=== PATIENT | female | born 1980 | race Caucasian/White ===

== ENCOUNTER 2016-12-02 08:05 | Outpatient (RCR) | payer BC ==
[~2016-12-02 08:05] MED LIST: CALC-250 PO; CLON1TAB27 PO; DESV100T PO; HYDR-3583 PO; LEVO88TA26 PO; LINA5TAB PO; LVT.112T PO; MAGN400T6 PO; METF500T8 PO; TIZA2TAB3 PO
== END 2017-03-02 | disposition home or self-care (01) ==
LOC: CARD 08:05
PROVIDERS: ATTEND Internal Medicine
DX: R00.2 Palpitations (principal)
CPT/HCPCS: 93225; 93226

== ENCOUNTER → 2016-12-29 | Outpatient (CLI) | payer BC ==
[~2016-12-29] VITALS: Ht 167.6 cm; Wt 105.7 kg
[~2016-12-29] MED LIST changes: +CATHETER FLUSH 10 ML SYR IV PRN
[2016-12-29 08:06] VITALS: BP 154/100
--- NOTE | 2016-12-29 16:07 | STRESS TEST ---
PROCEDURE PHYSICIAN: ZAKI BOYER DATE OF PROCEDURE: 12/29/2016 MYOCARDIAL PERFUSION IMAGING: ATTENDING PHYSICIAN: Hillary Bocanegra APRN PRIMARY PHYSICIAN: Dr. Patric Bocanegra. DIAGNOSES: 1. Chest pain. 2. Palpitation. PROCEDURE DETAILS: Please review Dr. Bocanegra's note for the treadmill test. Myocardial perfusion imaging was performed with 10.29 mCi of Myoview for rest imaging and 30 mCi of Myoview for stress imaging. TID was 0.96. Ejection fraction 77%. Normal myocardial perfusion imaging rest and stress imaging. Rest and stress previous normal wall motion on gaited images. CONCLUSION: 1. Normal myocardial perfusion imaging on stress and rest. 2. Normal LV function. Job ID: [id number] Dictated Date: 12/29/2016 12:40:21 Pyridine Operator Date: 12/29/2016 16:01:42 / jocelyn
== END ==
LOC: CARD 06:58
PROVIDERS: ATTEND Nurse Practitioner Family
DX: R07.9 Chest pain, unspecified (principal); R00.2 Palpitations
CPT/HCPCS: 78452; 93017

== ENCOUNTER → 2017-03-16 | Outpatient (CLI) | payer BC ==
[~2017-03-16] MED LIST changes: -CATHETER FLUSH 10 ML SYR IV PRN
--- NOTE | 2017-03-16 17:21 | Diagnostic Imaging Report ---
INDICATION: Low back pain. No known injury. EXAMINATION: Three views of the lumbar spine were obtained. FINDINGS: There is normal height and alignment of the lumbar vertebral bodies. Disc spaces are well-maintained. There is no spondylosis. There is no fracture. IMPRESSION: No abnormality is seen with no change from 01/03/2008. Dictated by: Dictated on workstation # [id number]
== END ==
LOC: RAD 16:36
PROVIDERS: ATTEND Internal Medicine
DX: M54.5 Low back pain (principal)
CPT/HCPCS: 72100

== ENCOUNTER → 2017-04-02 | Outpatient (CLI) | payer BC ==
--- NOTE | 2017-04-02 10:39 | Diagnostic Imaging Report ---
PROCEDURE: MRI lumbar spine. TECHNIQUE: Multiplanar, multisequence MRI of the lumbar spine was performed without contrast. INDICATION: Chronic back pain. No known discrete injury. Lumbar vertebral body heights are maintained. The alignment is anatomic and the marrow signal intensity normal. The pedicles and pars were intact. There was no acute or chronic fracture. The conus appeared normal. The nerves of the cauda equina revealed a normal pattern of dispersal. No paravertebral mass, hemorrhage, aneurysm, or fluid collection demonstrated. The T12-L1, the L1-L2, the L2-L3, the L3-L4, and the L4-L5 endplates and discs appeared normal. L4-L5: There is ligamentum flavum thickening and hypertrophic facet arthrosis, but a substantial degree of canal stenosis is not felt present. L5-S1: Broad-based right paramedian posterior disc protrusion and bulging effaces the ventral epidural fat and mildly indents the right ventral thecal sac itself. This disc does not significantly impede upon the exiting L5 nerve root. The neural foramen was not significantly stenosed. The disc is separable from the takeoff of the descending right S1 nerve root and no significant compromise to the lateral recess. IMPRESSION: 1. Broad-based bulging of the L5-S1 disc with mild canal stenosis and no significant nerve impingement. 2. Posterior element hypertrophy at L4-L5 without substantial canal stenosis. 3. Normal alignment. No acute osseous pathology. No intrathecal abnormality. Dictated by: Dictated on workstation # [id number]
== END ==
LOC: RAD 07:54
PROVIDERS: ATTEND Nurse Practitioner Family
DX: M51.26 Other intervertebral disc displacement, lumbar region (principal)
CPT/HCPCS: 72148

== ENCOUNTER → 2017-05-22 | Outpatient (CLI) | payer BC ==
--- NOTE | 2017-05-22 09:14 | Diagnostic Imaging Report ---
PROCEDURE: MR imaging cervical spine without contrast. TECHNIQUE: Multiplanar/multisequence MR imaging of the cervical spine was performed without contrast. INDICATION: Chronic neck pain. FINDINGS: There is straightening of the lordotic curvature of the cervical spine. This could be related to muscle spasm. The vertebral body heights are preserved. There is disc desiccation in the upper and mid cervical spine levels. There is no significant marrow signal abnormality. The spinal cord has normal caliber, contour, and signal. The foramen magnum and upper cervical canal are widely patent. C2-3: There is no disc herniation and no spinal canal or foraminal stenosis. C3-4: No disc herniation. No spinal canal or foraminal stenosis. C4-5: No disc herniation. No spinal canal or foraminal stenosis. C5-6: There is a disc/spur complex with no spinal canal stenosis. No foraminal narrowing. C6-7: There is disc/spur complex with no spinal canal stenosis. No foraminal narrowing. C7-T1: No disc herniation. No spinal canal or foraminal stenosis. IMPRESSION: Mild disc herniation at the C5-6 level. No spinal canal or foraminal stenosis at any level. Dictated by: Dictated on workstation # [id number]
== END ==
LOC: RAD 07:26
PROVIDERS: ATTEND Orthopaedic Surgery Orthopaedic Surgery of the Spine
DX: M50.222 Other cervical disc displacement at C5-C6 level (principal); G89.29 Other chronic pain
CPT/HCPCS: 72141

== ENCOUNTER 2018-07-26 09:57 | Outpatient (RCR) | payer BC | END 2018-10-24 | disposition home or self-care (01) | LOC: LAB 09:57 | PROVIDERS: ATTEND Nurse Practitioner Family | DX: R19.7 Diarrhea, unspecified (principal) ==

== ENCOUNTER → 2019-06-15 | Outpatient (CLI) | payer BC ==
--- NOTE | 2019-06-15 11:21 | Diagnostic Imaging Report ---
INDICATION: Back pain. TIME OF EXAM: 11:06 a.m. FINDINGS: Curvature and alignment of the lumbar spine are normal. Vertebral body heights are maintained. Disc spaces are preserved. No fracture or subluxation is seen. Postop changes in the right and left abdomen are noted. IMPRESSION: No acute bony abnormality is detected. Dictated by: Dictated on workstation # [id number]
--- NOTE | 2019-06-15 11:27 | Diagnostic Imaging Report ---
INDICATION: Neck pain. TIME OF EXAM: 11:04 AM AP, lateral and odontoid views cervical spine were obtained. FINDINGS: There is some straightening of the normal cervical lordotic curvature. C1-T1 is identified with clarity on lateral view. No fracture or subluxation is seen. Prevertebral tissues are normal. Odontoid is intact. IMPRESSION: No acute bony abnormality is detected. Dictated by: Dictated on workstation # [id number]
--- NOTE | 2019-06-15 11:28 | Diagnostic Imaging Report ---
INDICATION: Back pain. TIME OF EXAM: 11:05 a.m. FINDINGS: Alignment of the thoracic spine is normal. Vertebral body heights are maintained. No acute fracture is identified. The pedicles and paraspinous line are intact. IMPRESSION: No acute bony abnormality is detected. Dictated by: Dictated on workstation # [id number]
--- NOTE | 2019-06-15 11:29 | Diagnostic Imaging Report ---
INDICATION: Right shoulder pain. TIME OF EXAM: 11:02 a.m. Three views of the right shoulder were obtained. FINDINGS: Glenohumeral and acromioclavicular alignment is normal. Acromiohumeral space is normal. No fracture or dislocation is seen. IMPRESSION: No acute bony abnormality is detected. Dictated by: Dictated on workstation # [id number]
== END ==
LOC: RAD 10:23
PROVIDERS: ATTEND Nurse Practitioner Family
DX: M54.2 Cervicalgia (principal); M54.6 Pain in thoracic spine; M54.5 Low back pain; M25.511 Pain in right shoulder; Z98.890 Other specified postprocedural states
CPT/HCPCS: 72040; 72072; 72100; 73030

== ENCOUNTER → 2020-01-11 | Outpatient (CLI) | payer BC ==
--- NOTE | 2020-01-11 17:11 | Diagnostic Imaging Report ---
INDICATION: Heavy menstrual bleeding x1 month. Pelvic sonography performed with transabdominal and transvaginal views. The uterus measures 8.2 x 4.0 x 4.8 cm. There is no uterine mass. Endometrium measures 4 mm in thickness. There is an atypical endometrial hyperechoic structure measuring 6 x 5 mm. This may represent a calcification although foreign body not excluded. The right ovary has normal appearance and measures 3.3 x 1.7 x 2.3 cm. The left ovary measures 2.2 x 1.1 x 1.5 cm and appears normal. There is no free fluid. There is normal color-flow to both ovaries. There is a small 6 mm nabothian cyst of the cervix. IMPRESSION: No evidence of myometrial mass. There is an echogenic structure in the endometrium of uncertain significance. This may represent calcification or a foreign body, correlate with clinical history. There is a nabothian cyst of the cervix. The ovaries appear normal. There is no free fluid. Dictated by: Dictated on workstation # [id number]
== END ==
LOC: RAD 14:54
PROVIDERS: ATTEND Internal Medicine
DX: N88.8 Other specified noninflammatory disorders of cervix uteri (principal); N92.0 Excessive and frequent menstruation with regular cycle
CPT/HCPCS: 76830; 76856

== ENCOUNTER → 2020-04-09 | Outpatient (CLI) | payer BC ==
--- NOTE | 2020-04-09 20:37 | Diagnostic Imaging Report ---
EXAMINATION: Right forearm radiographs, 2 views. COMPARISON: None. HISTORY: 40-year-old female, right mid to distal forearm pain after a fall 2 days ago. FINDINGS: There is no identified acute fracture. There is no periosteal reaction. There is no radiopaque foreign body. Bone mineralization and alignment appear unremarkable. IMPRESSION: 1. No identified acute bony abnormality of the right forearm. Dictated by: Dictated on workstation # [id number]
== END ==
LOC: RAD 18:11
PROVIDERS: ATTEND Chiropractor
DX: M79.601 Pain in right arm (principal)
CPT/HCPCS: 73090

== ENCOUNTER → 2020-04-18 | Outpatient (CLI) | payer BC ==
--- NOTE | 2020-04-18 16:20 | Diagnostic Imaging Report ---
INDICATION: Fall two weeks ago with right wrist pain. TIME OF EXAM: 03:53 p.m. EXAMINATION: Four views of the right wrist were obtained. FINDINGS: Distal radius and ulna are intact. Carpus is intact. A navicular view was performed and the navicular appears to be intact. Visualized metacarpals are unremarkable. IMPRESSION: No acute bony abnormality is detected. Dictated by: Dictated on workstation # [id number]
== END ==
LOC: RAD 15:32
PROVIDERS: ATTEND Nurse Practitioner Family
DX: M25.531 Pain in right wrist (principal)
CPT/HCPCS: 73110

== ENCOUNTER → 2021-04-18 | Outpatient (CLI) | payer BC ==
--- NOTE | 2021-04-18 15:32 | Diagnostic Imaging Report ---
EXAMINATION: Chest 2 view HISTORY: COUGH CHRONIC DYSPNEA SOB COMPARISON: None available. FINDINGS: Heart size and pulmonary vasculature are normal. The lungs are clear without consolidation, pleural effusion, or pneumothorax. The osseous structures are intact. IMPRESSION: 1. No acute radiographic abnormality in the chest. Dictated by: Dictated on workstation # [id number]
== END ==
LOC: RAD 14:08
PROVIDERS: ATTEND Nurse Practitioner Family
DX: R05.3 Chronic cough (principal); R06.02 Shortness of breath; M25.531 Pain in right wrist
CPT/HCPCS: 71046

== ENCOUNTER → 2021-04-18 | Outpatient (CLI) | payer BC ==
--- NOTE | 2021-04-19 09:53 | Diagnostic Imaging Report ---
INDICATION: Routine screening. No prior mammograms are available for comparison. This a baseline study. 2-D and 3-D bilateral screening mammography was performed with CAD. Both breasts are heterogeneously dense, limiting the sensitivity of mammography. There is a density in the superior left breast, seen on the MLO view. No corresponding density on the CC view is seen. Additional views recommended. Right breast is unremarkable. No malignant-appearing microcalcifications are seen. Axillae are unremarkable. IMPRESSION: Left breast density. Additional views recommended for further evaluation. BI-RADS 0 ACR BI-RADS Category 0: Incomplete. (Needs additional imaging evaluation). Result letter will be mailed to the patient. Note: At least 10% of breast cancer is not imaged by mammography. Dictated by: Dictated on workstation # [id number]
== END ==
LOC: RAD 14:06
PROVIDERS: ATTEND Obstetrics & Gynecology
DX: Z12.31 Encounter for screening mammogram for malignant neoplasm of breast (principal)
CPT/HCPCS: 77063; 77067

== ENCOUNTER → 2021-04-26 | Outpatient (CLI) | payer BC ==
--- NOTE | 2021-04-26 15:53 | Diagnostic Imaging Report ---
INDICATION: Left breast density. Patient presents for additional views. CORRELATION is made with screening study from 04/18/2021. Unilateral left 2-D and 3-D diagnostic mammography was performed with CAD. This includes spot compression ML and conventional 90 degree lateral views. The density in the superior left breast resolves with additional views. This most likely represented superimposed fibroglandular tissue. No mass is detected. IMPRESSION: BI-RADS Category 1 Additional views fail to demonstrate a discrete mass. The patient may return to routine annual screening mammography. ACR BI-RADS Category 1: Negative. Result letter will be mailed to the patient. Note: At least 10% of breast cancer is not imaged by mammography. Dictated by: Dictated on workstation # [id number]
== END ==
LOC: RAD 14:15
PROVIDERS: ATTEND Obstetrics & Gynecology
DX: R92.2 Inconclusive mammogram (principal)
CPT/HCPCS: 77065; G0279

== ENCOUNTER → 2021-06-19 | Outpatient (CLI) | payer BC ==
[~2021-06-19] MED LIST changes: +RT-ALBUTEROL SULF 2.5 MG/3 ML PRE-MIX VIAL INH ONE
--- NOTE | 2021-06-19 14:06 | Diagnostic Imaging Report ---
EXAMINATION: CT chest without contrast. TECHNIQUE: Multiple contiguous axial images were obtained through the chest without the use of intravenous contrast. All CT scans use one or more of the following dose optimizing techniques: automated exposure control, MA and/or KvP adjustment based on patient size and exam type or iterative reconstruction. HISTORY: Cough COMPARISON: None available. FINDINGS: There is no edema or pneumonia. No pleural effusion. No pneumothorax. No suspicious nodules. There is no axillary or supraclavicular lymphadenopathy. There is no mediastinal lymphadenopathy. Heart size is normal. There are no coronary artery calcifications. No pericardial effusion. Aorta is normal in caliber. Limited views of the upper abdomen show postsurgical changes of the stomach and cholecystectomy. There are no suspicious osseus lesions. IMPRESSION: 1. No acute abnormality in the chest. Dictated by: Dictated on workstation # [id number]
== END ==
LOC: RT 13:00
PROVIDERS: ATTEND Internal Medicine Critical Care Medicine
DX: R05.3 Chronic cough (principal); E61.1 Iron deficiency; G25.81 Restless legs syndrome
CPT/HCPCS: 71250; 94060; 94726; 94729

== ENCOUNTER → 2021-10-17 | Outpatient (CLI) | payer BC ==
[~2021-10-17] MED LIST changes: -RT-ALBUTEROL SULF 2.5 MG/3 ML PRE-MIX VIAL INH ONE
--- NOTE | 2021-10-17 16:57 | Diagnostic Imaging Report ---
PROCEDURE: US Non-ob pelvis comp/trans. TECHNIQUE: Multiple realtime grayscale images were obtained of the pelvis in various projections endovaginally. Transabdominal imaging was also performed. INDICATION: Heavy periods. COMPARISON: 01/11/2020. FINDINGS: Transabdominal: The uterus and adnexa have a unremarkable transabdominal appearance. Transvaginal images were obtained for additional characterization. Transvaginal: The uterus is anteverted and measures 8.8 x 3.5 x 4.8 cm. The endometrial stripe measures 0.4 cm and has a normal appearance. An IUD is in place. The right ovary is well visualized measuring 2.8 x 1.8 x 2.7 cm and demonstrating normal color Doppler flow. The left ovary is well-visualized measuring 3.4 x 1.6 x 1.8 cm with normal color Doppler flow. No adnexal masses. No free fluid is seen in the pelvis. IMPRESSION: 1. No sonographic abnormalities are visualized in the uterus and ovaries. No adnexal mass or free fluid. Dictated by: Dictated on workstation # [id number]
== END ==
LOC: RAD 15:15
PROVIDERS: ATTEND Obstetrics & Gynecology
DX: N92.1 Excessive and frequent menstruation with irregular cycle (principal)
CPT/HCPCS: 76830; 76856

== ENCOUNTER → 2022-10-24 | Outpatient (CLI) | payer BC ==
--- NOTE | 2022-10-27 09:48 | Diagnostic Imaging Report ---
INDICATION: Routine screening. Comparison is made with prior mammogram from 04/18/2021. 2-D and 3-D bilateral screening mammography was performed with CAD. CAD is utilized. The current study was also evaluated with a Computer Aided Detection (CAD) system. Both breasts are heterogeneously dense, limiting the sensitivity of mammography. The overall parenchymal pattern is stable. No mass or malignant-appearing microcalcifications are seen. Axillae are unremarkable. IMPRESSION: BI-RADS Category 1 No mammographic features suspicious for malignancy are identified. ACR BI-RADS Category 1: Negative. Result letter will be mailed to the patient. Note: At least 10% of breast cancer is not imaged by mammography. Dictated by: Dictated on workstation # [id number]
== END ==
LOC: RAD 15:19
PROVIDERS: ATTEND Internal Medicine
DX: Z12.31 Encounter for screening mammogram for malignant neoplasm of breast (principal)
CPT/HCPCS: 77063; 77067

== ENCOUNTER 2023-04-21 05:29 | Outpatient (CLI) | payer BC ==
[~2023-04-21] VITALS: Ht 167.7 cm; Wt 70.5 kg
[2023-04-21] MEDS ORDERED: CALC-146 PO (16:28)
[2023-04-21] MEDS ORDERED: GUAN2TAB25 PO (16:28)
[2023-04-21] MEDS ORDERED: ACET-168 PO (16:28)
[2023-04-21] MEDS ORDERED: LINA290C PO (16:28)
[2023-04-21] MEDS ORDERED: [UNRECOGNIZED DRUG - CODE] PO (16:28)
[2023-04-21] MEDS ORDERED: IRON18TA PO (16:28)
[2023-04-21] MEDS ORDERED: MAGN200T PO (16:28)
[2023-04-21] MEDS ORDERED: ROTI1PAT8 TD (16:28)
[2023-04-21] MEDS ORDERED: B6/F1CAP PO (16:28)
[2023-04-21] MEDS ORDERED: S-AD400T3 PO (16:28)
[2023-04-21] MEDS ORDERED: AMLO2.5T4 PO (16:28)
[2023-04-21] MEDS ORDERED: ZINC50TA51 PO (16:28)
[2023-04-21] MEDS ORDERED: AZEL205.10 NS (16:28)
[2023-04-21] MEDS ORDERED: LEVO100T PO (16:28)
[2023-04-21] MEDS ORDERED: PANT40TA52 PO (16:28)
[2023-04-21] MEDS ORDERED: MULT-1136 PO (16:28)
[2023-04-21] MEDS ORDERED: AMIT25TA9 PO (16:28)
== END 2023-04-21 16:57 | disposition home or self-care (01) ==
LOC: PREOP 05:29
PROVIDERS: ATTEND Obstetrics & Gynecology
DX: Z01.818 Encounter for other preprocedural examination (principal)

== ENCOUNTER 2023-04-28 07:40 | Day surgery (SDC) | payer BC ==
[2023-04-28] VITALS (10 sets, daily range): BP systolic 84–116; BP diastolic 52–84
[~2023-04-28] VITALS: Ht 167.7 cm; Wt 70.5 kg
[~2023-04-28 07:40] MED LIST changes: +ACET-168 PO; +AMIT25TA9 PO; +AMLO2.5T4 PO; +AZEL205.10 NS; +B6/F1CAP PO; +CALC-146 PO; +GUAN2TAB25 PO; +IRON18TA PO; +LEVO100T PO; +LINA290C PO; +MAGN200T PO; +MULT-1136 PO; +PANT40TA52 PO; +ROTI1PAT8 TD; +S-AD400T3 PO; +ZINC50TA51 PO; +[UNRECOGNIZED DRUG - CODE] PO
[2023-04-28] MEDS ORDERED: LACTATED RINGERS 1,000 ML 1,000 ML IV PRN (07:45)
[2023-04-28] MEDS ORDERED: BUPIVACAINE 0.25% 30 ML VIAL ONE (08:22)
[2023-04-28] MEDS ORDERED: dexAMETHasone INJ 10 MG/ML 1 ML VIAL ONE (08:26)
[2023-04-28] MEDS ORDERED: LIDOCAINE PF 2% 5 ML VIAL ONE (08:26)
[2023-04-28] MEDS ORDERED: ONDANSETRON INJECTION 4 MG/2 ML (SDV) ONE (08:26)
[2023-04-28] MEDS ORDERED: fentaNYL INJECTION 100 MCG/2 ML VIAL ONE (08:26)
[2023-04-28] MEDS ORDERED: proPOfol INJECTION 200 MG/20 ML VIAL IV ONE (08:26)
[2023-04-28] MEDS ORDERED: SEVOFLURANE (ULTANE) 15 ML INHAL SOLN ONE (08:26)
[2023-04-28 08:27] LABS: BASOPHILS # (AUTO) 0.1 10^3/uL (0.0-0.1); BASOPHILS % (AUTO) 2 % (0-10); EOSINOPHILS # (AUTO) 0.5 10^3/uL (0.0-0.3); EOSINOPHILS % (AUTO) 10 % (0-10); HEMATOCRIT 39 % (35-52); HEMOGLOBIN 12.9 g/dL (11.5-16.0); LYMPHOCYTES # (AUTO) 1.7 10^3/uL (1.0-4.0); LYMPHOCYTES % (AUTO) 32 % (12-44); MEAN CORPUSCULAR HEMOGLOBIN 31 pg (25-34); MEAN CORPUSCULAR HGB CONC 33 g/dL (32-36); MEAN CORPUSCULAR VOLUME 93 fL (80-99); MONOCYTES # (AUTO) 0.5 10^3/uL (0.0-1.0); MONOCYTES % (AUTO) 9 % (0-12); NEUTROPHILS # (AUTO) 2.7 10^3/uL (1.8-7.8); NEUTROPHILS % (AUTO) 48 % (42-75); PLATELET COUNT 346 10^3/uL (130-400); WHITE BLOOD COUNT 5.5 10^3/uL (4.3-11.0)
[2023-04-28] MEDS ORDERED: MIDAZOLAM INJ 2 MG/2 ML VIAL ONE (08:27)
[2023-04-28] MEDS ORDERED: KETOROLAC INJ 30 MG/ML VIAL ONE (08:28)
--- NOTE | 2023-04-28 08:47 | History & Physical-Surgical ---
HPO-Surgical History of Present Illness Diagnosis/Surgical Indication: AUB, CHRONIC DYSMENORRHEA Procedure: Hysteroscopy, D and C, Sari Endometrial ablation Date of Surgery: Apr 28, 2023 Weight (Pounds): 233 Weight (Ounces): 0.0 Height (Feet): 5 Height (Inches): 6.00 Allergies and Home Medications Allergies Coded Allergies: ropinirole HCl (Unverified Allergy, Unknown, N/V, 04/21/23) Patient Home Medication List Home Medication List Reviewed: Yes Acetaminophen (Acetaminophen Extra Strength) 500 Mg Tablet, 1,000 MG PO NEEDED, (Reported) Entered as Reported by: Ruma Nelson on 04/21/23 1628 Amitriptyline HCl (Amitriptyline HCl) 25 Mg Tablet, 50 MG PO HS, (Reported) Entered as Reported by: Ruma Nelson on 04/21/23 162 Amlodipine Besylate (Amlodipine Besylate) 2.5 Mg Tablet, 2.5 MG PO DAILY, (Reported) Entered as Reported by: Ruma Nelson on 04/21/23 1628 Azelastine HCl (Astepro Allergy) 205.5 Mcg (0.15 %) [place].pump, 205.5 MCG NS BID, (Reported) Entered as Reported by: Ruma Nelson on 04/21/23 1628 B6/Folic/B12/Coffee/Phosphatid (Neuriva Plus Brain Perform Cap) 1.7MG-400 Capsule, 2 EACH PO DAILY, (Reported) Entered as Reported by: Ruma Nelson on 04/21/23 1628 Calcium Crb&Cit/D3/Min34/Beny (Citracal + Bone Density Tablet) 300 Mg-200 Unit- 13.5 Mg Tablet, 1 EACH PO DAILY, (Reported) Entered as Reported by: Ruma Nelson on 04/21/23 1628 Clonazepam (Clonazepam) 1 Mg Tab.rapdis, 1 MG PO HS PRN for ANXIETY, (Reported) Entered as Reported by: JEFF KENDALL on 02/28/11 1219 Guanfacine HCl (Guanfacine HCl ER) 2 Mg Tab.er.24h, 2 MG PO DAILY, (Reported) Entered as Reported by: Ruma Nelson on 04/21/23 1628 Iron (Iron) 18 Mg Tablet, 18 MG PO NEEDED, (Reported) Entered as Reported by: Ruma Nelson on 04/21/231627 Levothyroxine Sodium (Synthroid) 100 Mcg Tablet, 100 MCG PO DAILY, (Reported) Entered as Reported by: Ruma Nelson on 04/21/231627 Linaclotide (Linzess) 290 Mcg Capsule, 290 MCG PO DAILY, (Reported) Entered as Reported by: Ruma Nelson on 04/21/231627 Magnesium (Magnesium) 200 Mg Tablet, 600 MG PO DAILY, (Reported) Entered as Reported by: Ruma Nelson on 04/21/231627 Multivitamin (Multivitamin) 1 Each Tablet, 4 EACH PO DAILY, (Reported) Entered as Reported by: Ruma Nelson on 04/21/231627 Naltrexone HCl (Lotrexone) 4.5 Mg Capsule, 4.5 MG PO HS, (Reported) Entered as Reported by: Ruma Nelson on 04/21/231627 Pantoprazole Sodium (Pantoprazole Sodium) 40 Mg Tablet.dr, 40 MG PO BID, (Reported) Entered as Reported by: Ruma Nelson on 04/21/231627 Rotigotine (Neupro) 2 Mg/24 Hour Patch.td24, 1 EACH TD DAILY, (Reported) Entered as Reported by: Ruma Nelson on 04/21/231627 S-Adenosylmethionine Sul Tosyl (Damion-E) 400 Mg Tablet, 400 MG PO DAILY, (Reported) Entered as Reported by: Ruma Nelson on 04/21/231627 Zinc Amino Acid Chelate (Zinc) 50 Mg Tablet, 50 MG PO DAILY, (Reported) Entered as Reported by: Ruma Nelson on 04/21/231627 Discontinued Medications Calcium Carbonate/Vitamin D3 (Vitamin D3 5,000 Unit Tablet) 1 Each Tablet, 1 EACH PO WEEKLY, (Reported) Discontinued Reason: No Longer Taking Entered as Reported by: JEFF KENDALL on 02/28/11 1219 Desvenlafaxine Succinate (Pristiq) 100 Mg Tab.sr.24h, 100 MG PO HS, (Reported) Discontinued Reason: No Longer Taking Entered as Reported by: JEFF KENDALL on 02/28/11 1219 Hydrocodone Bit/Acetaminophen (Lortab 5 Mg) 1 Tab Tab, 1-2 EA PO Q4HR PRN, (Reported) Discontinued Reason: No Longer Taking Entered as Reported by: BRIDGER HUGGINS on 03/07/11 1336 Levothyroxine Sodium (Synthroid) 112 Mcg Tablet, 1 EACH PO DAILY, (Reported) Discontinued Reason: New Order Entered as Reported by: JEFF KENDALL on 02/28/11 1219 Levothyroxine Sodium (Synthroid) 88 Mcg Tablet, 1 EACH PO DAILY, (Reported) Discontinued Reason: New Order Entered as Reported by: JEFF KENDALL on 02/28/11 1219 Linagliptin (Tradjenta) 5 Mg Tablet, 5 MG PO DAILY, (Reported) Discontinued Reason: No Longer Taking Entered as Reported by: JEFF KENDALL on 02/28/11 1219 Magnesium Oxide (Mag Ox 400) 400 Mg Tablet, 1 EACH PO HS, (Reported) Discontinued Reason: New Order Entered as Reported by: JEFF KENDALL on 02/28/11 1219 Metformin Hcl (Metformin Er 500MG) 500 Mg Tab.sr.24h, 1 EACH PO BID WITH MEALS, (Reported) Discontinued Reason: No Longer Taking Entered as Reported by: JEFF KENDALL on 02/28/11 1219 Tizanidine Hcl (Tizanidine Hcl) 2 Mg Tablet, 2 MG PO NEEDED, (Reported) Discontinued Reason: No Longer Taking Entered as Reported by: JEFF KENDALL on 02/28/11 1219 Past Dhefbvh-Btmbsz-Jbtjhf Hx Patient Social History Alcohol Use?: No Substance type: Marijuana Seasonal Allergies Seasonal Allergies: Yes Surgeries Yes Adenoidectomy, Gallbladder, Tonsillectomy Respiratory No (HX OF COVID) Cardiovascular Yes Hypertension, Syncope Neurological No Reproductive System Hx Reproductive Disorders: Yes (PCOS) Sexually Transmitted Disease: No Female Reproductive Disorders: Polycystic Ovarian Dis SPINE NURSE History: IUD Genitourinary No Gastrointestinal Yes (MINI GASTRIC BYPASS) Gastroesophageal Reflux, Gall Bladder Disease Musculoskeletal Yes Fractures Endocrine History of Endocrine Disorders: Yes (HASHIMOTOS) Endocrine Disorders: Hyperthyroidism HEENT History of HEENT Disorders: No Loss of Vision: Bilateral Hearing Impairment: Denies Cancer No Psychosocial History of Psychiatric Problem: Yes Behavioral Health Disorders: Anxiety Integumentary History of Skin or Integumenta: No Blood Transfusions History of Blood Disorders: No Family Medical History Significant Family History: Hypertension Exam Vital Signs Vital Signs 04/28/23 08:00 Temp 36.6 Pulse 81 Resp 18 B/P (MAP) 104/73 (83) Pulse Ox 100 Capillary Refill : Labs Laboratory Tests Test 04/28/23 08:10 Range/Units White Blood Count 5.5 4.3-11.0 10^3/uL Red Blood Count 4.17 3.80-5.11 10^6/uL Hemoglobin 12.9 11.5-16.0 g/dL Hematocrit 39 35-52 % Mean Corpuscular Volume 93 80-99 fL Mean Corpuscular Hemoglobin 31 25-34 pg Mean Corpuscular Hemoglobin Concent 33 32-36 g/dL Red Cell Distribution Width 12.7 10.0-14.5 % Platelet Count 346 130-400 10^3/uL Mean Platelet Volume 10.0 9.0-12.2 fL Immature Granulocyte % (Auto) 0 % Neutrophils (%) (Auto) 48 42-75 % Lymphocytes (%) (Auto) 32 12-44 % Monocytes (%) (Auto) 9 0-12 % Eosinophils (%) (Auto) 10 0-10 % Basophils (%) (Auto) 2 0-10 % Neutrophils # (Auto) 2.7 1.8-7.8 10^3/uL Lymphocytes # (Auto) 1.7 1.0-4.0 10^3/uL Monocytes # (Auto) 0.5 0.0-1.0 10^3/uL Eosinophils # (Auto) 0.5 H 0.0-0.3 10^3/uL Basophils # (Auto) 0.1 0.0-0.1 10^3/uL Immature Granulocyte # (Auto) 0.0 0.0-0.1 10^3/uL General Appearance: Alert, Oriented X3 HEENT: Atraumatic Cardiovascular: Regular Rate Psych/Mental Status: Mental Status NL Assessment/Plan Assessment and Plan Diagnosis: AUB P: D and C, Hysteroscopy, Sari endometrial ablation Admission Diagnosis Admission Status: Other (Same Day Surgery) JEAN PAUL LEA DO Apr 28, 2023 08:47
--- NOTE | 2023-04-28 08:49 | Discharge Inst-Women's Service ---
Discharge Inst-Women's Serv Depart Medication/Instructions New, Converted or Re-Newed RX: Transmitted to Pharmacy Problems Reviewed?: Yes Consults/Follow Up Additional Follow Up: Yes Orders/Referrals Dr. Lea in 3 weeks Activity Activity: Activity as Tolerated Driving Instructions: No Driving for 1 Week NO SMOKING: NO SMOKING Nothing Inside Vagina: No Douching, No [place], No Tampons Diet Discharge Diet: No Restrictions Symptoms to Report to : Bleeding Excessive, Pain Increased, Fever Over 101 Degrees F, Vaginal Bleeding Increase, Questions/Concerns For Any Problems or Questions: Contact Your Physician JEAN PAUL LEA DO Apr 28, 2023 08:49
[2023-04-28] MEDS ORDERED: ACHD5005 PO (08:50)
[2023-04-28] MEDS ORDERED: D5 LR 1,000 ML IV SOLN 1,000 ML IV SCH (09:00)
[2023-04-28] MEDS ORDERED: ONDANSETRON INJECTION 4 MG/2 ML (SDV) IVP PRN ×2 (09:00→09:30)
[2023-04-28] MEDS ORDERED: KETOROLAC INJ 30 MG/ML VIAL IVP ONE (09:00)
[2023-04-28] MEDS ORDERED: HYDROcodone/ACETAMINOPHEN 5 MG/325 MG TABLET PO PRN (09:00)
--- NOTE | 2023-04-28 09:23 | Anesthesia-General Post-Op ---
MAC Patient Condition Mental Status/LOC: Same as Preop Cardiovascular: Satisfactory Nausea/Vomiting: Absent Respiratory: Satisfactory Pain: Controlled Complications: Absent Post Op Complications Complications None Follow Up Care/Instructions Patient Instructions None needed. Anesthesiology Discharge Order Discharge Order Patient is doing well, no complaints, stable vital signs, no apparent adverse anesthesia problems. No complications reported per nursing. JEFERSON KNIGHT CRNA Apr 28, 2023 09:23
[2023-04-28] MEDS ORDERED: morphine INJ 10 MG/ML 1ML (SYR OR VIAL) IVP ONE (09:30)
--- NOTE | 2023-04-28 17:24 | OPERATIVE REPORT ---
DATE OF SERVICE: 04/28/2023 PREOPERATIVE DIAGNOSES: 1. A 43-year-old female with abnormal uterine bleeding. 2. Menorrhagia. POSTOPERATIVE DIAGNOSES: 1. A 43-year-old female with abnormal uterine bleeding. 2. Menorrhagia. PROCEDURE: D and C, hysteroscopy with Sari, endometrial ablation. SURGEON: Paul Howard DO ANESTHESIA: LMA general. ESTIMATED BLOOD LOSS: Minimal. URINE OUTPUT: 100 mL clear, drained at the end of the procedure. FLUIDS: 800 mL lactated Ringer solution. FINDINGS: Grossly normal-appearing external female genitalia, grossly normal-appearing cervix. Intrauterine cavity with multiple polypoid-appearing structures. SPECIMEN SENT: Endometrial curettings. INDICATIONS FOR PROCEDURE: This 43-year-old female is the patient who had sought care in my office for ongoing issues with bleeding. She had an IUD placed without any improvement in her symptoms. The patient already underwent a permanent sterilization procedure and she now wished to proceed and consider endometrial ablation. We discussed this versus more aggressive measures and the patient was agreeable to proceed with ablation despite the potential failure. Risk of the procedure were discussed with the patient in detail and after all of her questions were answered with her present, consent was obtained, the patient was taken to the operating room. OPERATIVE DESCRIPTION IN DETAIL: Once in the operating room, anesthesia was administered and found to be adequate, was placed in dorsal lithotomy position, prepped and draped in normal sterile fashion. A timeout was performed. Straight catheterization was performed. A weighted speculum inserted to the patient's vagina. Right angle retractor was utilized. Cervix was grasped at 12 o'clock position using a long Allis clamp. I then performed paracervical block at 3 and 9 o'clock positions on the cervix. Care was taken to aspirate for injecting 5 mL of 0.25% Marcaine injected at each site. I then gently sound uterine cavity, depth was found to be 8 cm. I then gently dilate the cervix using Hanks dilators to maximum dilatation approximately 8 mm, at which point, I advanced the hysteroscope using normal saline and the true clear fluid management system. I advanced the hysteroscope into the uterus. I am able to visualize the intrauterine cavity. There were multiple polypoid fluffy endometrial tissue noted. Bilateral tubal ostia were appreciated. There is no submucosal fibroids or other protruding masses into the uterine cavity. I then removed the hysteroscope and performed a gentle curettage of all endometrial surfaces collecting this tissue and sending as endometrial curettings. I then sound the depth of the cavity was found to be 4.5 cm. I take the Sari device, inserted to 4.5 cm cavity depth. I deployed the device within the uterus. I filled the air lock for a CO2 seal and then activated device. The CO2 seal and safety check are performed and the device passes the safety check. I then activated the device. After 120 second cycle, the ablation is completed. I removed the Sari and there is evidence of logan on the Sari device after removal. I then performed another hysteroscopy of the endometrial cavity and there is evidence of cauterization of all the surfaces of the endometrial lining. I then removed the hysteroscope, removed all the instruments from the patient's vagina. The patient tolerated the procedure well and was taken to recovery area in stable condition. Lap and sponge counts were correct at the end of the procedure. Instrument counts correct as well. Job ID: [id number] DocumentID: [id number] Dictated Date: 04/28/2023 10:21:52 Interior Surface Insulation Worker Date: 04/28/2023 17:23:00 Dictated By: DO CORAL SHETH
== END 2023-04-28 11:10 | disposition home or self-care (01) ==
LOC: SDC 07:40
PROVIDERS: ATTEND Obstetrics & Gynecology
DX: N92.0 Excessive and frequent menstruation with regular cycle (principal); N93.9 Abnormal uterine and vaginal bleeding, unspecified; E66.9 Obesity, unspecified; Z68.25 Body mass index [BMI] 25.0-25.9, adult
CPT/HCPCS: 36415; 84703; 85025; 86850; 86900; 86901; 87081; 88305